=== PATIENT | female | born 1970 | race Hispanic/Latino ===

== ENCOUNTER 2021-02-26 15:57 | Emergency (ER) | payer OTHER ==
[~2021-02-26] VITALS: Ht 154.9 cm; Wt 63.5 kg
[2021-02-26 16:51] VITALS: BP 143/89
[2021-02-26 16:59] LABS: APPEARANCE,URINE Clear (CLEAR); BILIRUBIN,URINE Negative (NEGATIVE); COLOR,URINE Yellow (YELLOW); GLUCOSE, URINE (UA) Negative (NEGATIVE); KETONES,URINE Negative (NEGATIVE); LEUKOCYTE ESTERASE ,URINE Negative (NEGATIVE); NITRATE,URINE Negative (NEGATIVE); OCCULT BLOOD,URINE Moderate (NEGATIVE); PH,URINE 6.5 (5.0-8.0); PROTEIN,URINE Negative (NEGATIVE); UROBILINOGEN,URINE 0.2 mg/dL (0.2-1.0)
[2021-02-26 17:03] LABS: BASOPHILS % (AUTO) 0.4 % (0.0-5.0); EOSINOPHILS % (AUTO) 0.7 % (0.0-8.0); HEMATOCRIT 38.1 % (36-48); LYMPHOCYTES % (AUTO) 22.7 % (21.0-51.0); MEAN CORPUSCULAR HEMOGLOBIN 29.1 pg (27.0-33.0); MEAN CORPUSCULAR HGB CONC 33.1 g/dL (32.0-36.0); MONOCYTES % (AUTO) 7.6 % (3.0-13.0); NEUTROPHILS % (AUTO) 68.4 % (40.0-77.0); PLATELET COUNT (AUTO) 442 K/uL (130-400); RED BLOOD CELL COUNT(AUTO) 4.33 MIL/uL (4.00-5.50); RED CELL DISTRIBUTION WIDTH 12.5 % (11.0-15.5); WHITE BLOOD COUNT (AUTO) 8.5 K/uL (4.8-10.8)
[2021-02-26 17:06] LABS: BACTERIA,URINE Rare /HPF (None Seen); WBC,URINE 0-1 /HPF (0-1)
[2021-02-26 17:07] LABS: SQUAMOUS EPITHELIAL CELL,UR Rare /HPF (0-2)
[2021-02-26 17:14] LABS: ALBUMIN 3.9 g/dL (3.5-5.0); BILIRUBIN,TOTAL 0.2 mg/dL (0.2-1.0); CREATININE 0.9 mg/dL (0.5-1.5); POTASSIUM 3.4 mmol/L (3.5-5.1); TOTAL PROTEIN, SERUM 8.2 g/dL (6.0-8.3)
[2021-02-26 17:46] VITALS: BP 135/72
[2021-02-26] MEDS ORDERED: KETOROLAC 60 MG VIAL (30MG/ML) IM ONE (19:00)
[2021-02-26] MEDS ORDERED: ESOM40CA54 PO (19:15)
[2021-02-26 19:16] VITALS: BP 136/61
== END 2021-02-26 19:42 | disposition home or self-care (01) ==
LOC: EDH 15:57
DX: K29.00 Acute gastritis without bleeding (principal); K21.9 Gastro-esophageal reflux disease without esophagitis; F41.9 Anxiety disorder, unspecified; I10 Essential (primary) hypertension; Z79.1 Long term (current) use of non-steroidal anti-inflammatories (NSAID)
CPT/HCPCS: 36415; 71045; 76700; 80053; 81001; 82150; 83690; 85025; 96372; 99285; J1885

== ENCOUNTER 2021-09-17 00:37 | Emergency (ER) | payer BC, OTHER ==
[~2021-09-17] VITALS: Ht 154.9 cm; Wt 63.5 kg
[~2021-09-17 00:37] MED LIST: ESOM40CA54 PO
[2021-09-17] MEDS ORDERED: LIDOCAINE HCL 2% VISCOUS 15 ML UDCUP PO ONE (01:00)
[2021-09-17] MEDS ORDERED: MAG/ALUM/SIMETH 30 ML UDCUP PO ONE (01:00)
[2021-09-17] MEDS ORDERED: ONDANSETRON ODT 4MG TAB SL ONE (01:00)
[2021-09-17] MEDS ORDERED: PANTOPRAZOLE 40 MG TAB DR PO SCH (01:00)
[2021-09-17 01:09] VITALS: BP 138/69
[2021-09-17] MEDS ORDERED: MAG-55 PO (01:10)
== END 2021-09-17 01:37 | disposition home or self-care (01) ==
LOC: EDH 00:37
DX: K29.00 Acute gastritis without bleeding (principal); I10 Essential (primary) hypertension
CPT/HCPCS: 93005

== ENCOUNTER 2023-04-03 14:35 | Emergency (ER) | payer BC ==
[~2023-04-03] VITALS: Ht 154.9 cm; Wt 64.4 kg
[~2023-04-03 14:35] MED LIST changes: +IBUP-2070 PO; +MAG-55 PO; +PHEN-847 PO
[2023-04-03] MEDS ORDERED: DEXAMETHASONE SOD PHOSPHATE 4 MG/ML 1ML VIAL IM SCH (17:30)
[2023-04-03] MEDS ORDERED: KETOROLAC 30MG VIAL (30MG/ML) IM ONE (17:30)
[2023-04-03] MEDS ORDERED: PRED20TA3 PO (17:48)
[2023-04-03 18:46] VITALS: BP 156/88; PULSE 95; RESP 18; O2SAT 98
== END 2023-04-03 18:52 | disposition home or self-care (01) ==
LOC: EDH 14:35
DX: J02.9 Acute pharyngitis, unspecified (principal); I10 Essential (primary) hypertension; F41.9 Anxiety disorder, unspecified; F32.A Depression, unspecified; Z79.52 Long term (current) use of systemic steroids
CPT/HCPCS: 99284; 96372 ×2; J1100; J1885